=== PATIENT | male | born 1985 | race African-American/Black ===

== ENCOUNTER 2019-09-03 13:39 | Emergency (ER) | payer SELFPAY ==
[2019-09-03] MEDS ORDERED: KETOROLAC TROMETHAMINE 60 MG/2 ML SDV IM ONE (14:06)
--- NOTE | 2019-09-03 14:18 | ER Document Report ---
HPI - HPI Time Seen by Provider: 09/03/19 13:59 Pain Level: 3 Notes: Otherwise healthy 33-year-old male presenting to the emergency department with chief complaint of mid back pain. Patient reports approximately 2 weeks ago he twisted wrong and caused himself pain in the middle part of his back. He states that the pain has gotten worse and increases with movement. He has not tried any medications for his symptoms. Denies any loss of control of bowel or bladder, denies any urinary retention or saddle anesthesia. - CONSTITUTIONAL Constitutional: DENIES: Fever, Chills - EENT EENT: DENIES: Sore Throat, Ear Pain, Eye problems - NEURO Neurology: DENIES: Headache, Weakness, Vision blurred, Dizzinesss / Vertigo - CARDIOVASCULAR Cardiovascular: DENIES: Chest pain - RESPIRATORY Respiratory: DENIES: Trouble Breathing, Coughing - URINARY Urinary: DENIES: Dysuria, Urgency, Frequency - REPRODUCTIVE Reproductive: DENIES: : - MUSCULOSKELETAL Musculoskeletal: DENIES: Extremity pain Past Medical History - General Information source: Patient - Social History Smoking Status: Current Some Day Smoker Chew tobacco use (# tins/day): No Frequency of alcohol use: Occasional Drug Abuse: None Family History: Reviewed & Not Pertinent Patient has suicidal ideation: No Patient has homicidal ideation: No - Medical History Medical History: Negative Surgical Hx: Negative - Immunizations Immunizations up to date: Yes Vertical Provider Document - CONSTITUTIONAL Notes: PHYSICAL EXAMINATION: GENERAL: Well-appearing, well-nourished and in no acute distress. HEAD: Atraumatic, normocephalic. EYES: Pupils equal round and reactive to light, extraocular movements intact, sclera anicteric, conjunctiva are normal. ENT: Nares patent, oropharynx clear without exudates. Moist mucous membranes. NECK: Normal range of motion, supple without lymphadenopathy LUNGS: Breath sounds clear to auscultation bilaterally and equal. No wheezes rales or rhonchi. HEART: Regular rate and rhythm without murmurs ABDOMEN: Soft, nontender, nondistended abdomen. No guarding, no rebound. No masses appreciated. Musculoskeletal: Normal range of motion, no pitting or edema. No cyanosis. Tenderness to palpation in the thoracic region in the paraspinous muscles bilaterally. No vertebral tenderness, step-off or deformity. NEUROLOGICAL: Cranial nerves grossly intact. Normal speech, normal gait. Normal sensory, motor exams PSYCH: Normal mood, normal affect. SKIN: Warm, Dry, normal turgor, no rashes or lesions noted. - INFECTION CONTROL TRAVEL OUTSIDE OF THE [place] IN LAST 30 DAYS: No Course - Re-evaluation Re-evalutation: Presentation of a well appearing patient complaining of acute on chronic back pain. No rapid progression of symptoms, systemic symptoms including fevers, chills, weight loss, history of recent bacterial infection, bilateral symptoms, numbness, weakness, difficulty walking, urinary retention or bowel incontinence, personal history of cancer, immunosuppression, diabetes, known AAA, or history of IV drug use. Exam is without point tenderness over vertebral bodies, pulsatile abdominal mass, and patient has symmetric and intact lower extremity strength, sensation, and reflexes without clonus. 2+ symmetric medial malleolar and dorsalis pedis pulses Based on history and physical, I have a very low suspicion of a concerning etiology of pain including epidural compression syndrome, spinal infection, transverse myelitis, malignancy, abdominal aortic aneurysm, renal colic, acute lower extremity claudication, neurogenic claudication, ankylosing spondylitis, or other intra-abdominal process. - Continue normal daily activities as tolerated by pain - Provide with standard musculoskeletal back pain exercise instructions - Instruct to follow up with primary care provider if symptoms not improving - Provide careful return precautions and concerning symptoms to watch for. - Vital Signs Vital signs: Temp Pulse Resp BP Pulse Ox 98.3 F 69 18 121/72 100 09/03/19 13:42 09/03/19 13:42 09/03/19 13:42 09/03/19 13:42 09/03/19 13:42 Discharge - Discharge Clinical Impression: Back pain Qualifiers: Back pain location: low back pain Chronicity: acute Back pain laterality: right Sciatica presence: without sciatica Qualified Code(s): M54.5 - Low back pain Condition: Stable Disposition: HOME, SELF-CARE Additional Instructions: You have been seen in the Emergency Department (ED) today for back pain. Your workup and exam have not shown any acute abnormalities and you are likely suffering from muscle strain or possible problems with your discs, but there is no treatment that will fix your symptoms at this time. Please take the muscle relaxer that has been prescribed as directed. You should also purchase a local lidocaine cream such as "aspercreme with lidocaine" and use per bottle instructions to the affected area. Apply heat to the area as often as you are able. Continue to keep active and avoid prolonged periods of bed rest. Please follow up with your doctor as soon as possible regarding today's ED visit and your back pain. Return to the ED for worsening back pain, fever, weakness or numbness of either leg, or if you develop either (1) an inability to urinate or have bowel movements, or (2) loss of your ability to control your bathroom functions (if you start having "accidents"), or if you develop other new symptoms that concern you.concern you. Prescriptions: Methocarbamol [Robaxin 750 mg Tablet] 750 mg PO Q4 #30 tablet Forms: Return to Work Referrals: LOCAL,NO [NO LOCAL MD] - Follow up as needed
--- NOTE | 2019-09-03 15:37 | RADIOLOGY REPORT (SQ) ---
EXAM DESCRIPTION: T SPINE AP/LAT COMPLETED DATE/TIME: 09/03/2019 3:22 pm REASON FOR STUDY: BACK PAIN COMPARISON: None. NUMBER OF VIEWS: Three views. TECHNIQUE: AP, swimmer's and lateral radiographic images acquired of the thoracic spine. LIMITATIONS: None. FINDINGS: MINERALIZATION: Normal. ALIGNMENT: Normal. No scoliosis. VERTEBRAE: No fracture or bone lesion. Maintained height, normal segmentation. DISCS: No significant loss of height or significant narrowing. No large osteophytes. HARDWARE: None in the spine. MEDIASTINUM AND SOFT TISSUES: Normal heart size and aortic contour. No soft tissue abnormality. VISUALIZED LUNG ASHTON: Clear. OTHER: No other significant finding. IMPRESSION: NO SIGNIFICANT RADIOGRAPHIC FINDING IN THE THORACIC SPINE. TECHNICAL DOCUMENTATION: JOB ID: [id number] [facility]- All Rights Reserved Reading location - IP/workstation name: [email or web address]
[2019-09-03 16:06] VITALS: BP 118/74
== END 2019-09-03 16:10 | disposition home or self-care (01) ==
LOC: ER 13:39
DX: M54.5 Low back pain (principal); G89.29 Other chronic pain; X50.1XXA Overexertion from prolonged static or awkward postures, initial encounter; F17.200 Nicotine dependence, unspecified, uncomplicated
CPT/HCPCS: 99283; 96372; 72070; J1885

== ENCOUNTER 2019-09-07 06:28 | Emergency (ER) | payer SELFPAY ==
[2019-09-07] MEDS ORDERED: CYCLOBENZAPRINE HCL 10 MG TABLET PO ONE (09:57)
[2019-09-07] MEDS ORDERED: KETOROLAC TROMETHAMINE 60 MG/2 ML SDV IM ONE (09:57)
[2019-09-07] MEDS ORDERED: DEXAMETHASONE SOD PHOS INJ 10 MG/1 ML VIAL IM ONE (09:57)
--- NOTE | 2019-09-07 10:22 | RADIOLOGY REPORT (SQ) ---
EXAM DESCRIPTION: CHEST 2 VIEWS COMPLETED DATE/TIME: 09/07/2019 10:05 am REASON FOR STUDY: upper back pain COMPARISON: None. EXAM PARAMETERS: NUMBER OF VIEWS: two views TECHNIQUE: Digital Frontal and Lateral radiographic views of the chest acquired. RADIATION DOSE: NA LIMITATIONS: none FINDINGS: LUNGS AND PLEURA: No opacities, masses or pneumothorax. No pleural effusion. MEDIASTINUM AND HILAR STRUCTURES: No masses or contour abnormalities. HEART AND VASCULAR STRUCTURES: Heart normal size. No evidence for failure. BONES: No acute findings. HARDWARE: None in the chest. OTHER: No other significant finding. IMPRESSION: NO ACUTE RADIOGRAPHIC FINDING IN THE CHEST. TECHNICAL DOCUMENTATION: JOB ID: [id number] [employer]- All Rights Reserved Reading location - IP/workstation name: [email or web address]
--- NOTE | 2019-09-07 10:45 | ER Document Report ---
HPI - HPI Time Seen by Provider: 09/07/19 09:30 Pain Level: 4 Context: Patient is a 33-year-old male who presents to the emergency department with a chief complaint of right upper back pain medial to his right shoulder blade. Some neck pain. Patient was seen here in the emergency department and was given Toradol He also has a few days ago, but states that he continues to have pain. He also was sent home with Robaxin. Patient states that laying down does not make it any better. - CONSTITUTIONAL Constitutional: DENIES: Fever, Chills - EENT EENT: DENIES: Sore Throat, Ear Pain - NEURO Neurology: DENIES: Headache, Weakness - CARDIOVASCULAR Cardiovascular: DENIES: Chest pain - RESPIRATORY Respiratory: DENIES: Trouble Breathing, Coughing - GASTROINTESTINAL Gastrointestinal: DENIES: Abdominal Pain, Nausea, Patient vomiting - REPRODUCTIVE Reproductive: DENIES: : - MUSCULOSKELETAL Musculoskeletal: REPORTS: Extremity pain - Right posterior shoulder, Back Pain - Right upper back, Neck Pain - Right neck. DENIES: Swelling - DERM Skin Color: Normal Skin Problems: None Past Medical History - Social History Smoking Status: Current Some Day Smoker Family History: Reviewed & Not Pertinent Patient has suicidal ideation: No Patient has homicidal ideation: No - Immunizations Immunizations up to date: Yes Vertical Provider Document - CONSTITUTIONAL Agree With Documented VS: Yes Exam Limitations: No Limitations General Appearance: No Apparent Distress - INFECTION CONTROL TRAVEL OUTSIDE OF THE [place] IN LAST 30 DAYS: No - HEENT HEENT: Atraumatic, Normocephalic, PERRLA - NECK Neck: Normal Inspection - RESPIRATORY Respiratory: Breath Sounds Normal, No Respiratory Distress - CARDIOVASCULAR Cardiovascular: Regular Rate, Regular Rhythm Pulses: Normal: Radial - MUSCULOSKELETAL/EXTREMETIES Musculoskeletal/Extremeties: FROM, Tender - Right posterior shoulder, right neck - NEURO Level of Consciousness: Awake, Alert, Appropriate Motor/Sensory: No Motor Deficit, No Sensory Deficit - DERM Integumentary: Warm, Dry, No Rash Course - Re-evaluation Re-evalutation: 09/07/19 Chest x-ray is negative. No pneumonia noted. I will place the patient on Flexeril, as Robaxin has not worked for him. He received Decadron and Toradol here in the emergency department. He states that he feels a little bit better and is able to move his shoulder little more with better range of motion. Advised him to see if he can get physical therapy once his insurance starts. He is in agreement with this plan. Follow-up precautions were given. Verbal discharge instructions were given to the patient. They verbalized understanding. They are stable for discharge. - Vital Signs Vital signs: Temp Pulse Resp BP Pulse Ox 98.7 F 60 16 135/87 H 100 09/07/19 06:50 09/07/19 06:50 09/07/19 06:50 09/07/19 06:50 09/07/19 06:50 Discharge - Discharge Clinical Impression: Neck pain Back pain Qualifiers: Back pain location: thoracic back pain Chronicity: acute Back pain laterality: right Qualified Code(s): M54.6 - Pain in thoracic spine Condition: Stable Disposition: HOME, SELF-CARE Additional Instructions: You were seen today in the emergency department for back pain and neck pain. Your chest x-ray was normal. Your pain is related to muscle tension. Once you get insurance, please follow-up with a primary care provider in regards to this visit. I highly recommend physical therapy. If you are unable to get physical therapy, I highly suggest you go to the mall and go to the acupressure massage place to help break up the muscle tension in your back. You are also being sent home with Flexeril, medication to help with your muscle tension. If you develop shortness of breath, difficulty breathing, or any other symptoms, please return to the emergency department. Prescriptions: Cyclobenzaprine HCl [Flexeril 10 mg Tablet] 10 mg PO TIDP PRN #30 tab PRN Reason: Forms: Return to Work
[2019-09-07 10:54] VITALS: BP 119/76
== END 2019-09-07 10:55 | disposition home or self-care (01) ==
LOC: ER 06:28
DX: M54.6 Pain in thoracic spine (principal); M54.2 Cervicalgia; F17.200 Nicotine dependence, unspecified, uncomplicated
CPT/HCPCS: 71046; J1885; J1100; 96372; 99283